=== PATIENT | female | born 1985 | race African-American/Black ===

== ENCOUNTER 2017-11-20 08:55 | Day surgery (SDC) | payer OTHER ==
[2017-11-20] MEDS ORDERED: FENTAnyl 50 MCG/ML VIAL ×2 (11:07→11:15)
[2017-11-20] MEDS ORDERED: MIDAZOLAM 1 MG/ML 2 ML INJ ×2 (11:07)
[2017-11-20] MEDS ORDERED: CEFAZOLIN 1 GM INJ (11:16)
[2017-11-20] MEDS ORDERED: KETOROLAC 30 MG INJ (11:16)
[2017-11-20] MEDS ORDERED: DEXAMETHASONE 4 MG/ML 1 ML INJ (11:16)
[2017-11-20] MEDS ORDERED: ONDANSETRON 4 MG INJ (11:16)
[2017-11-20] MEDS ORDERED: METOCLOPRAMIDE 10 MG INJ (11:16)
[2017-11-20] MEDS: LIDOCAINE 1%/EPI 30 ML INJ (11:16)
[2017-11-20] MEDS ORDERED: FENTAnyl 50 MCG/ML VIAL IV ×2 (11:30)
[2017-11-20] MEDS ORDERED: METOCLOPRAMIDE 10 MG INJ IV (11:30)
[2017-11-20] MEDS ORDERED: OXYCODONE/ACETAMINOPHEN (5/325) TAB PO (11:30)
[2017-11-20] MEDS ORDERED: ONDANSETRON 4 MG INJ IV (11:30)
== END 2017-11-20 13:45 | disposition home or self-care (01) ==
LOC: SDS 08:55
DX: L91.8 Other hypertrophic disorders of the skin (principal); E66.9 Obesity, unspecified; Z68.31 Body mass index [BMI] 31.0-31.9, adult
CPT/HCPCS: 11200; 88305